=== PATIENT | female | born 1995 | race Caucasian/White ===

== ENCOUNTER 2019-03-12 15:19 | Emergency (ER) | payer OTHER ==
--- NOTE | 2019-03-12 15:48 | EDM.PDOC ---
ED HPI GENERAL MEDICAL PROBLEM - General Chief Complaint: Eye Problems Stated Complaint: EXPOSURE Time Seen by Provider: 03/12/19 15:26 - History of Present Illness INITIAL COMMENTS - FREE TEXT/NARRATIVE: HISTORY AND PHYSICAL: History of present illness: Patient is a 23-year-old female who presents for medical screening exam after having been exposed to body fluids this was in the form of urine presumptively that was splashed I when she was disposing of the trash. This was not bloody or known to be in the source is unknown. Patient denies any other concern or exposure Review of systems: As per history of present illness and below otherwise all systems reviewed and negative. Past medical history: As per history of present illness and as reviewed below otherwise noncontributory. Surgical history: As per history of present illness and as reviewed below otherwise noncontributory. Social history: No reported history of drug or alcohol abuse. Family history: As per history of present illness and as reviewed below otherwise noncontributory. Physical exam: HEENT: Atraumatic, normocephalic, pupils reactive, negative for conjunctival pallor or scleral icterus, mucous membranes moist, throat clear, neck supple, nontender, trachea midline. Diagnostics: To be determined Therapeutics: To be determined Impression: #1 body fluid exposure (urine) Definitive disposition and diagnosis as appropriate pending reevaluation and review of above. - Related Data Allergies Allergy/AdvReac Type Severity Reaction Status Date / Time No Known Allergies Allergy Verified 03/12/19 15:47 Home Meds: Home Meds . [No Known Home Meds] 03/12/19 [History] ED ROS GENERAL - Review of Systems Review Of Systems: ROS reveals no pertinent complaints other than HPI. ED EXAM GENERAL W FULL EYE - Physical Exam Exam: See Below (See dictation) Course - Vital Signs Text/Narrative:: Lengthy discussion with patient regarding risk-benefit and diagnostic treatment options all was discussed patient declines any diagnostic testing or prophylaxis and will be screened as outpatient through her employer and secure follow-up accordingly. Last Recorded V/S: Last Vital Signs Temp 36.2 C 03/12/19 15:30 Pulse 71 03/12/19 15:30 Resp 16 03/12/19 15:30 BP 112/71 03/12/19 15:30 Pulse Ox 97 03/12/19 15:30 Departure - Departure Time of Disposition: 15:51 Disposition: Home, Self-Care 01 Condition: Good Clinical Impression: Encounter for medical screening examination, Exposure to blood or body fluid - Discharge Information Referrals: PCP,None [Primary Care Provider] - Forms: ED Department Discharge Additional Instructions: The following information is given to patients seen in the emergency department who are being discharged to home. This information is to outline your options for follow-up care. We provide all patients seen in our emergency department with a follow-up referral. The need for follow-up, as well as the timing and circumstances, are variable depending upon the specifics of your emergency department visit. If you don't have a primary care physician on staff, we will provide you with a referral. We always advise you to contact your personal physician following an emergency department visit to inform them of the circumstance of the visit and for follow-up with them and/or the need for any referrals to a consulting specialist. The emergency department will also refer you to a specialist when appropriate. This referral assures that you have the opportunity for followup care with a specialist. All of these measure are taken in an effort to provide you with optimal care, which includes your followup. Under all circumstances we always encourage you to contact your private physician who remains a resource for coordinating your care. When calling for followup care, please make the office aware that this follow-up is from your recent emergency room visit. If for any reason you are refused follow-up, please contact the [facility] emergency department at and asked to speak to the emergency department charge nurse.
== END 2019-03-12 16:00 | disposition home or self-care (01) ==
LOC: MW.ED 15:19
DX: Z77.21 Contact with and (suspected) exposure to potentially hazardous body fluids (principal)
CPT/HCPCS: 99283

== ENCOUNTER 2020-11-22 11:00 | Emergency (ER) | payer BC ==
--- NOTE | 2020-11-22 11:47 | EDM.PDOC ---
ED HPI GENERAL MEDICAL PROBLEM - General Chief Complaint: Abdominal Pain Stated Complaint: BODY PAINS Time Seen by Provider: 11/22/20 11:28 Source of Information: Reports: Patient - History of Present Illness INITIAL COMMENTS - FREE TEXT/NARRATIVE: 25-year-old female [place] 20 weeks and 1 day with history of cholecystectomy and asthma presents with upper abdominal pain that started yesterday. Abdominal pain is localized to the epigastrium area, described as aching sensation, rated 4/10 and radiates into the upper back, pain waxes and wanes and is worse with movement and position. Pain improves with Tylenol. Her last ultrasound was on Saturday. Her FUR EXAMINER is at [facility] Dr. Madden. She denies fever, chills, chest pain, cough, nausea, vomiting, diarrhea, dysuria, vaginal bleeding, nausea contractions, leakage of fluids. ROS: A 10-point review of systems, other than pertinent positives and negatives as stated per HPI, is otherwise negative Past medical history: No additional pertinent history Past Surgical history: No additional pertinent history Social history: No additional pertinent history Family history: No additional pertinent history PHYSICAL EXAM General: AOx4, GCS = 15, No distress HEENT: dry mucous membrane Neck: supple, no meningismus, no Kernig or Brudzinski Cardiac: S1S2 RRR Respiratory: CTAB, no crackles or rales, no wheezing Abdomen: Soft, nontender, no rebound or guarding, nondistended, no pulsatile mass. FHT 143 Back: nontender Musculoskeletal: NVI distally, no deformity Neuro: No focal deficits, CN 2 - 12 WNL. Onset: Today abdomen, back Pain Score (Numeric/FACES): 5 - Related Data Allergies Allergy/AdvReac Type Severity Reaction Status Date / Time No Known Allergies Allergy Verified 11/22/20 11:12 Home Meds: Home Meds Mag Hydrox/Aluminum Hyd/Simeth [Almacone-2] 355 ml PO BID PRN #1 oral.susp 11/22/20 [Rx] Pnv No.95/Ferrous Fum/Folic AC [ Caplet] 1 tab PO DAILY 11/22/20 [History] Past Medical History - Past Health History Medical/Surgical History: Denies Medical/Surgical History Respiratory History: Reports: Asthma FUR EXAMINER History: Reports: - Infectious Disease History Infectious Disease History: Reports: None - Past Surgical History GI Surgical History: Reports: Cholecystectomy Social & Family History - Family History Family Medical History: No Pertinent Family History - Tobacco Use Tobacco Use Status *Q: Never Tobacco User - Caffeine Use Caffeine Use: Reports: Tea - Recreational Drug Use Recreational Drug Use: No ED ROS GENERAL - Review of Systems Review Of Systems: See Below (see dictation) ED EXAM, GI/ABD - Physical Exam Exam: See Below (see dictation) Course - Vital Signs Last Recorded V/S: Last Vital Signs Temp 98 F 11/22/20 11:08 Pulse 72 11/22/20 11:08 Resp 16 11/22/20 11:08 BP 136/70 11/22/20 11:08 Pulse Ox 100 11/22/20 11:08 - Orders/Labs/Meds Orders: Active Orders 24 hr Category Date Time Status Heart Tones [ Heart Rate] [RC] Click to Edit Care 11/22/20 11:57 Active Labs: Laboratory Tests 11/22/20 11/22/20 11/22/20 Range/Units 11:56 11:56 14:01 WBC 6.82 (4.0-11.0) K/uL RBC 3.59 L (4.30-5.90) M/uL Hgb 11.5 L (12.0-16.0) g/dL Hct 34.8 L (36.0-46.0) % MCV 96.9 (80.0-98.0) fL MCH 32.0 (27.0-32.0) pg MCHC 33.0 (31.0-37.0) g/dL RDW Std Deviation 45.4 (28.0-62.0) fl RDW Coeff of Niall 13 (11.0-15.0) % Plt Count 254 (150-400) K/uL MPV 10.40 (7.40-12.00) fL Neut % (Auto) 69.3 (48.0-80.0) % Lymph % (Auto) 23.6 (16.0-40.0) % [place] % (Auto) 5.6 (0.0-15.0) % Eos % (Auto) 1.2 (0.0-7.0) % Baso % (Auto) 0.3 (0.0-1.5) % Neut # (Auto) 4.7 (1.4-5.7) K/uL Lymph # (Auto) 1.6 (0.6-2.4) K/uL Dundy # (Auto) 0.4 (0.0-0.8) K/uL Eos # (Auto) 0.1 (0.0-0.7) K/uL Baso # (Auto) 0.0 (0.0-0.1) K/uL Nucleated RBC % 0.0 /100WBC Nucleated RBCs # 0 K/uL Sodium 140 (136-145) mmol/L Potassium 4.1 (3.5-5.1) mmol/L Chloride 106 (98-107) mmol/L Carbon Dioxide 24.5 (21.0-32.0) mmol/L BUN 5 L (7.0-18.0) mg/dL Creatinine 0.7 (0.6-1.0) mg/dL Est Cr Clr Drug Dosing 121.55 mL/min Estimated GFR (MDRD) > 60.0 ml/min Glucose 92 (74-106) mg/dL Calcium 8.9 (8.5-10.1) mg/dL Total Bilirubin 0.2 (0.2-1.0) mg/dL AST 11 L (15-37) IU/L ALT 10 L (14-63) IU/L Alkaline Phosphatase 45 L (46-116) U/L Total Protein 6.9 (6.4-8.2) g/dL Albumin 3.1 L (3.4-5.0) g/dL Globulin 3.8 (2.6-4.0) g/dL Albumin/Globulin Ratio 0.8 L (0.9-1.6) Lipase 71 L (73-393) U/L Urine Color YELLOW Urine Appearance CLEAR Urine pH 7.5 (5.0-8.0) Ur Specific [place] 1.015 (1.001-1.035) Urine Protein NEGATIVE (NEGATIVE) mg/dL Urine Glucose (UA) NEGATIVE (NEGATIVE) mg/dL Urine Ketones NEGATIVE (NEGATIVE) mg/dL Urine Occult Blood NEGATIVE (NEGATIVE) Urine Nitrite NEGATIVE (NEGATIVE) Urine Bilirubin NEGATIVE (NEGATIVE) Urine Urobilinogen 0.2 (<2.0) EU/dL Ur Leukocyte Esterase NEGATIVE (NEGATIVE) Urine RBC 0-1 (0-2/HPF) Urine WBC 0-1 (0-5/HPF) Ur Epithelial Cells RARE (NONE-FEW) Urine Bacteria RARE (NEGATIVE) Meds: Medications Discontinued Medications Generic Name Dose Route Start Last Admin Trade Name Mariaelena PRN Reason Stop Dose Admin Al Hydroxide/Mg Hydroxide 30 ml 11/22/20 11:54 11/22/20 12:29 Mag-Al Plus PO 11/22/20 11:55 30 ml ONETIME ONE Administration - Re-Assessments/Exams Free Text/Narrative Re-Assessment/Exam: 11/22/20 11:54 After aluminum hydroxide/magnesium hydroxide/simethicone in the ER, she improved and is currently stable for discharge. I performed a repeat exam and did not appreciate new abnormal findings. Patient exhibits normal vital signs and has a normal gait on road test. I advised the patient to return to the ER for reevaluation if symptoms worsened, including fever, worsening pain, or any other worrisome symptoms. I instructed the patient to follow up with her OBGYN within 1 week. MEDICAL DECISION MAKING: I reviewed the patients past medical records, lab and radiographic findings. I discussed the case with the patient. My differential diagnosis included: GERD, round ligament syndrome, UTI, pancreatitis. Patient demonstrated no tachycardia or fever or leukocytosis, I do not suspect for significant infectious etiology. Her urine did not demonstrate UTI. She has no gallbladder, she has no transaminitis, and her lipase was unremarkable, I do not suspect pancreatitis or choledocholithiasis. Her symptoms improved after getting an aluminum hydroxide and magnesium hydroxide and simethicone, I suspect her symptoms are secondary to GERD. Her heart tones = 143, I suspect she is stable for outpatient follow-up with FUR EXAMINER. Departure - Departure Time of Disposition: 14:47 Disposition: Home, Self-Care 01 Condition: Good Clinical Impression: GERD (gastroesophageal reflux disease) - Discharge Information *PRESCRIPTION DRUG MONITORING PROGRAM REVIEWED*: Not Applicable *COPY OF PRESCRIPTION DRUG MONITORING REPORT IN PATIENT MARIE: Not Applicable Prescriptions: Mag Hydrox/Aluminum Hyd/Simeth [Almacone-2] 355 ml PO BID PRN #1 oral.susp PRN Reason: Abdominal Pain Instructions: Food Choices for Gastroesophageal Reflux Disease, Adult, Gastroesophageal Reflux Disease, Adult, [id number] Referrals: Johan Diaz MD [Primary Care Provider] - 1 Week Forms: ED Department Discharge Additional Instructions: The need for follow-up, as well as the timing and circumstances, are variable depending upon the specifics of your emergency department visit. If you don't have a primary care physician on staff, we will provide you with a referral. We always advise you to contact your personal physician following an emergency department visit to inform them of the circumstance of the visit and for follow-up with them and/or the need for any referrals to a consulting specialist. The emergency department will also refer you to a specialist when appropriate. This referral assures that you have the opportunity for follow-up care with a specialist. All of these measure are taken in an effort to provide you with optimal care, which includes your follow-up. Under all circumstances we always encourage you to contact your private physician who remains a resource for coordinating your care. When calling for follow-up care, please make the office aware that this follow-up is from your recent emergency room visit. If for any reason you are refused follow-up, please contact the [facility] Emergency Department at and asked to speak to the emergency department charge nurse. If you do not have a primary care doctor, please follow up with the clinics below within 3-5 days. FUR EXAMINER clinics [facility] [address] [place] [id number] Sepsis Event Note (ED) - Evaluation Sepsis Screening Result: No Definite Risk - Focused Exam Vital Signs: Vital Signs Temp Pulse Resp BP Pulse Ox 11/22/20 11:08 98 F 72 16 136/70 100 - My Orders Last 24 Hours: My Active Orders 11/22/20 11:57 Heart Tones [ Heart Rate] [RC] Click to Edit - Assessment/Plan Last 24 Hours: My Active Orders 11/22/20 11:57 Heart Tones [ Heart Rate] [RC] Click to Edit
[2020-11-22] MEDS ORDERED: Aluminum Hydroxide/Magnesium Hydroxide/Simethicone Susp 30 ML Cup PO ONE (11:54)
[2020-11-22 12:50] LABS: BLOOD UREA NITROGEN,BUN 5 mg/dL (7.0-18.0); CARBON DIOXIDE,CO2 24.5 mmol/L (21.0-32.0); CHLORIDE,CL 106 mmol/L (98-107); GLUCOSE RANDOM 92 mg/dL (74-106); LIPASE 71 U/L (73-393); POTASSIUM,K 4.1 mmol/L (3.5-5.1); SODIUM,NA 140 mmol/L (136-145)
== END 2020-11-22 15:05 | disposition home or self-care (01) ==
LOC: MW.ED 11:00
DX: K21.9 Gastro-esophageal reflux disease without esophagitis (principal); J45.909 Unspecified asthma, uncomplicated
CPT/HCPCS: 36415; 80053; 81001; 83690; 85025; 99284; A9270; 99283

== ENCOUNTER 2021-04-04 06:39 | Inpatient (IN) | payer BC ==
[2021-04-04] MEDS ORDERED: Terbutaline 1 MG/ML SDV SUBCUT PRN (11:42)
[2021-04-04] MEDS ORDERED: Oxytocin/0.9 % Sodium Chloride 30 UNIT/500 ML BAG IV SCH ×2 (11:45→12:00)
[2021-04-04] MEDS ORDERED: Misoprostol 200 MCG Tab PO PRN (11:49)
[2021-04-04] MEDS ORDERED: Water For Irrigation,Sterile 1,000 ML Container IRR PRN (11:49)
[2021-04-04] MEDS ORDERED: Lidocaine 1% 50 ML MDV INJECT PRN (11:49)
[2021-04-04] MEDS ORDERED: Carboprost Tromethamine 250 MCG/1 ML Amp IM PRN (11:49)
[2021-04-04] MEDS ORDERED: Nalbuphine 10 MG/1 ML Vial IVPUSH PRN (11:49)
[2021-04-04] MEDS ORDERED: Sodium Chloride 0.9% 10 ML Syringe FLUSH PRN (11:49)
[2021-04-04] MEDS ORDERED: Sodium Chloride 0.9% 2.5 ML Syringe FLUSH PRN (11:49)
[2021-04-04] MEDS ORDERED: Sodium Chloride 0.9% 10 ML SDV IV PRN (11:49)
[2021-04-04] MEDS ORDERED: Tranexamic Acid 1,000 MG in Sodium Chloride 0.9% 100 ML IV PRN (11:49)
[2021-04-04] MEDS ORDERED: Butorphanol 1 MG/ML SDV IVPUSH PRN (11:49)
[2021-04-04] MEDS ORDERED: Methylergonovine 0.2 MG/1 ML Amp IM PRN (11:49)
[2021-04-04] MEDS: Lactated Ringers 1,000 ML IV SCH (12:29)
[2021-04-04] MEDS: Misoprostol 25 MCG (1/4 of 100 MCG) Tab VAG PRN ×2 (13:06→17:06)
[2021-04-04 13:14] LABS: BLOOD UREA NITROGEN,BUN 12 mg/dL (7.0-18.0); CARBON DIOXIDE,CO2 21.2 mmol/L (21.0-32.0); CHLORIDE,CL 102 mmol/L (98-107); GLUCOSE RANDOM 106 mg/dL (74-106); POTASSIUM,K 3.3 mmol/L (3.5-5.1); SODIUM,NA 138 mmol/L (136-145)
[2021-04-04] MEDS ORDERED: Ampicillin 2 GM in Sodium Chloride 0.9% 100 ML IV ONE (14:00)
[2021-04-04] MEDS: Ampicillin 1 GM in Sodium Chloride 0.9% 50 ML IV SCH ×2 (17:06→21:16)
[2021-04-04] MEDS ORDERED: Acetaminophen 500 MG Tab PO ONE (20:03)
[2021-04-05] MEDS: Lactated Ringers 1,000 ML IV SCH ×2 (00:33→05:11)
[2021-04-05] MEDS ORDERED: Ropivacaine HCl/PF 200 ML ONE (00:49)
[2021-04-05] MEDS ORDERED: Bupivacaine 0.25% 10 ML SDV ONE (00:49)
[2021-04-05] MEDS: Ampicillin 1 GM in Sodium Chloride 0.9% 50 ML IV SCH ×2 (01:10→05:11)
--- NOTE | 2021-04-05 01:22 | PCM.PREANE ---
Preanesthetic Assessment - Anesthesia/Transfusion/Family Hx Anesthesia History: Prior Anesthesia Without Reaction Family History of Anesthesia Reaction: No Transfusion History: No Prior Transfusion(s) - Physical Assessment NPO Status Date: 04/04/21 NPO Status Time: 21:00 Vital Signs: Last Vital Signs Temp 101.1 F H 04/04/21 20:25 Pulse Resp BP Pulse Ox Height: 5 ft 7 in Weight: 166 lb ASA Class: 2 Airway Class: Mallampati = 2 - Lab Values: Laboratory Last Values WBC 9.17 K/uL (4.0-11.0) 04/04/21 12:20 RBC 3.48 M/uL (4.30-5.90) L 04/04/21 12:20 Hgb 11.5 g/dL (12.0-16.0) L 04/04/21 12:20 Hct 33.9 % (36.0-46.0) L 04/04/21 12:20 MCV 97.4 fL (80.0-98.0) 04/04/21 12:20 MCH 33.0 pg (27.0-32.0) H 04/04/21 12:20 MCHC 33.9 g/dL (31.0-37.0) 04/04/21 12:20 RDW Std Deviation 43.3 fl (28.0-62.0) 04/04/21 12:20 RDW Coeff of Niall 12 % (11.0-15.0) 04/04/21 12:20 Plt Count 162 K/uL (150-400) 04/04/21 12:20 MPV 12.40 fL (7.40-12.00) H 04/04/21 12:20 Nucleated RBC % 0.0 /100WBC 04/04/21 12:20 Nucleated RBCs # 0 K/uL 04/04/21 12:20 Sodium 138 mmol/L (136-145) 04/04/21 12:20 Potassium 3.3 mmol/L (3.5-5.1) L 04/04/21 12:20 Chloride 102 mmol/L (98-107) 04/04/21 12:20 Carbon Dioxide 21.2 mmol/L (21.0-32.0) 04/04/21 12:20 BUN 12 mg/dL (7.0-18.0) 04/04/21 12:20 Creatinine 0.9 mg/dL (0.6-1.0) 04/04/21 12:20 Est Cr Clr Drug Dosing TNP 04/04/21 12:20 Estimated GFR (MDRD) > 60.0 ml/min 04/04/21 12:20 Glucose 106 mg/dL (74-106) 04/04/21 12:20 Uric Acid 6.8 mg/dL (2.6-7.2) 04/04/21 12:20 Calcium 8.5 mg/dL (8.5-10.1) 04/04/21 12:20 Total Bilirubin 0.2 mg/dL (0.2-1.0) 04/04/21 12:20 AST 17 IU/L (15-37) 04/04/21 12:20 ALT 12 IU/L (14-63) L 04/04/21 12:20 Alkaline Phosphatase 133 U/L (46-116) H 04/04/21 12:20 Total Protein 6.9 g/dL (6.4-8.2) 04/04/21 12:20 Albumin 2.7 g/dL (3.4-5.0) L 04/04/21 12:20 Globulin 4.2 g/dL (2.6-4.0) H 04/04/21 12:20 Albumin/Globulin Ratio 0.6 (0.9-1.6) L 04/04/21 12:20 Ur Random Creatinine 52.7 mg/dL 04/04/21 13:00 U Random Total Protein < 6.0 mg/dL (<11.9) 04/04/21 13:00 Protein/Creatinin Ratio TNP 04/04/21 13:00 SARS-CoV-2 RNA (ADA) NEGATIVE (NEGATIVE) 04/04/21 12:00 Blood Type O POSITIVE 04/04/21 12:20 Antibody Screen NEGATIVE 04/04/21 12:20 - Allergies Allergies/Adverse Reactions: Allergies Allergy/AdvReac Type Severity Reaction Status Date / Time No Known Allergies Allergy Verified 11/22/20 11:12 - Blood Blood Available: Yes Product(s) Available: PRBC - Anesthesia Plan Pre-Op Medication Ordered: None - Acknowledgements Anesthesia Type Planned: Epidural Pt an Appropriate Candidate for the Planned Anesthesia: Yes Alternatives and Risks of Anesthesia Discussed w Pt/Guardian: Yes Pt/Guardian Understands and Agrees with Anesthesia Plan: Yes PreAnesthesia Questionnaire - Past Health History Medical/Surgical History: Denies Medical/Surgical History Respiratory History: Reports: Asthma [employer]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: , Spontaneous - Infectious Disease History Infectious Disease History: Reports: None - Past Surgical History Head Surgeries/Procedures: Reports: None Respiratory Surgical History: Reports: None GI Surgical History: Reports: Cholecystectomy - SUBSTANCE USE Tobacco Use Status *Q: Never Tobacco User Tobacco Use Within Last Twelve Months: No Second Hand Smoke Exposure: No Recreational Drug Use History: No - HOME MEDS Home Medications: Home Meds Pnv No.95/Ferrous Fum/Folic AC [ Caplet] 1 tab PO DAILY 11/22/20 [History] Acetaminophen [Tylenol Extra Strength] 500 mg PO Q8HR PRN 04/04/21 [History] diphenhydrAMINE HCL [Unisom] 50 mg PO BEDTIME PRN 04/04/21 [History] polyethylene glycoL 3350 [MiraLAX] 17 gm PO BEDTIME PRN 04/04/21 [History] - CURRENT (IN HOUSE) MEDS Current Meds: Current Medications Butorphanol Tartrate (Butorphanol 1 Mg/Ml Sdv) 1 mg IVPUSH Q1H PRN PRN Reason: Pain (severe 7-10) Carboprost Tromethamine (Carboprost Tromethamine 250 Mcg/1 Ml Amp) 250 mcg IM ASDIRECTED PRN PRN Reason: Post Hemorrhage Oxytocin/Sodium Chloride (Oxytocin 30 Unit/500 Ml-Ns) 30 unit in 500 mls @ 2 mls/hr IV TITRATE CALVIN; Protocol Ampicillin Sodium 1 gm/ Sodium (Chloride) 50 mls @ 100 mls/hr IV Q4H [facility] Last Admin: 04/05/21 01:10 Dose: 100 mls/hr Documented by: Lactated Ringer's (Ringers, Lactated) 1,000 mls @ 150 mls/hr IV ASDIRECTED [facility] Last Admin: 04/05/21 00:33 Dose: 999 mls/hr Documented by: Oxytocin/Sodium Chloride (Oxytocin 30 Unit/500 Ml-Ns) 30 unit in 500 mls @ 999 mls/hr IV TITRATE CALVIN Tranexamic Acid 1,000 mg/ (Sodium Chloride) 110 mls @ 660 mls/hr IV ONETIME PRN PRN Reason: Bleeding Lidocaine HCl (Lidocaine 1% 50 Ml Mdv) 50 ml INJECT ONETIME PRN PRN Reason: Laceration repair Methylergonovine Maleate (Methylergonovine 0.2 Mg/1 Ml Amp) 0.2 mg IM ASDIRECTED PRN PRN Reason: Post Hemorrhage Misoprostol (Misoprostol 25 Mcg (1/4 Of 100 Mcg) Tab) 25 mcg VAG Q4H PRN PRN Reason: Cervical Ripening Last Admin: 04/04/21 17:06 Dose: 25 mcg Documented by: Misoprostol (Misoprostol 200 Mcg Tab) 200 mcg PO ONETIME PRN PRN Reason: Post Hemorrhage Nalbuphine HCl (Nalbuphine 10 Mg/1 Ml Vial) 10 mg IVPUSH Q1H PRN PRN Reason: Pain (severe 7-10) Sodium Chloride (Sodium Chloride 0.9% 10 Ml Syringe) 10 ml FLUSH ASDIRECTED PRN PRN Reason: Keep Vein Open Sodium Chloride (Sodium Chloride 0.9% 2.5 Ml Syringe) 2.5 ml FLUSH ASDIRECTED PRN PRN Reason: Keep Vein Open Sodium Chloride (Sodium Chloride 0.9% 10 Ml Sdv) 10 ml IV ASDIRECTED PRN PRN Reason: IV Use Sterile Water (Water For Irrigation,Sterile 1,000 Ml Container) 1,000 ml IRR ASDIRECTED PRN PRN Reason: delivery Terbutaline Sulfate (Terbutaline 1 Mg/Ml Sdv) 0.25 mg SUBCUT ASDIRECTED PRN PRN Reason: Tacysystole Discontinued Medications Acetaminophen (Acetaminophen 500 Mg Tab) 1,000 mg PO NOW ONE Stop: 04/04/21 20:04 Last Admin: 04/04/21 20:25 Dose: 1,000 mg Documented by: Bupivacaine HCl (Bupivacaine 0.25% 10 Ml Sdv) Confirm Administered Dose 10 ml .ROUTE .STK-MED ONE Stop: 04/05/21 00:50 Ampicillin Sodium 2 gm/ Sodium (Chloride) 100 mls @ 200 mls/hr IV ONETIME ONE Stop: 04/04/21 14:29 Last Admin: 04/04/21 13:06 Dose: 200 mls/hr Documented by: Ropivacaine (Naropin 0.2%) Confirm Administered Dose 200 mls @ as directed .ROUTE .STK-MED ONE Stop: 04/05/21 00:50 - Pre-Procedure Checklist Attending Provider Aware: Yes Chart Reviewed: Yes Consent Signed: Yes Labs Reviewed: Yes VS/FHR Reviewed: Yes Patient Identification Confirmation Method: Reports: Verbal Patient Pt an Appropriate Candidate for the Planned Anesthesia: Yes Alternatives and Risks of Anesthesia Discussed w Pt/Guardian: Yes - Procedure Procedure Start Date: 04/05/21 Procedure Start Time: 00:[address]: Reports: Blood Pressure, Heart Rate, SPO2 Functional IV: Yes Safety Measures: Reports: Patient Identified, Procedure Verified, Site Verified, Procedure Time Out Patient Position: Reports: Sitting Prep: Reports: Betadine x3 Local Anesthetic: Reports: Intradermal Wheal w Lidocaine 1% Regional Placement Level: Reports: L3-4 Needle: Reports: 17 g Touhy Approach: Reports: Midline Technique: Reports: MIRTHA Plastic Syringe Parasthesia: Reports: None Fluid Obtained: Reports: None Test Dose Time: 01:02 Test Dose Medication: Reports: Lidocaine 1.5% w Epinephrine 1:200,000 Test Dose Response: Reports: Negative Loading Dose Time: 01:02 Loading Dose Medication: bupivicaine 0.25% Loading Dose Patient Position: sitting Continuous Infusion Start Time: 01:05 Continuous Infusion Medication: ropivicaine 0.2% Continuous Infusion Rate: 16 Continuous Infusion PCS Bolus Option: 4 Continuous Infusion Lockout Dose (cc/hr): 32 Patient Position Post Placement: Reports: Supline/MATEO VS and FHR Monitored in Unit Post Placement: Yes Procedure End Date: 04/05/21 Procedure End Time: 01:59
[2021-04-05] MEDS ORDERED: oxyCODONE 5 MG Tab PO PRN (06:57)
[2021-04-05] MEDS ORDERED: Lanolin 100% Cream 7 GM Tube TOP PRN (06:57)
[2021-04-05] MEDS ORDERED: Bisacodyl 10 MG Supp RECTAL PRN (06:57)
[2021-04-05] MEDS ORDERED: Benzocaine/Menthol 20%-0.5% Spray 78 GM Cannister TOP PRN (06:57)
[2021-04-05] MEDS ORDERED: Witch Hazel Medicated Pads 40/Jar TOP PRN (06:57)
[2021-04-05] MEDS ORDERED: Docusate Sodium 100 MG Cap PO PRN (06:57)
--- NOTE | 2021-04-05 07:02 | PCM.DEL ---
L & D Note - General Info Date of Service: 04/05/21 Mother's Due Date: 04/11/21 - Delivery Note Labor: Spontaneous Cervical Ripening Method: Misoprostil (x2 doses) Delivery Outcome: Livebirth Infant Delivery Method: Spontaneous Vaginal Delivery-Single Presentation: Compound (left hand) Nuchal Cord: Present (x1), Reduced (after delivery of body) Anesthesia Type: Epidural Amniotic Fluid Description: Meconium Stained Episiotomy Type: None Laceration: Labial (left) Suture type: Vicryl Suture size: 2-0 Placenta: Intact, Spontaneous, Meconium Stained Cord: 3 Vessels Estimated Blood Loss: 100 Resuscitation Needed: No [place]: Stimulated, Warmed Score 1 min: 8 Score 5 min: 9 Delivery Comments (Free Text/Narrative):: Received 4 doses of IV Ampicillin for GBS prophylaxis - General Info Date of Service: 04/05/21 - Patient Data Vitals - Most Recent: Last Vital Signs Temp 38.4 C H 04/04/21 20:25 Pulse Resp BP Pulse Ox Weight - Most Recent: 75.296 kg Lab Results Last 24 Hours: Laboratory Results - last 24 hr 04/04/21 04/04/21 04/04/21 Range/Units 12:00 12:20 12:20 WBC 9.17 (4.0-11.0) K/uL RBC 3.48 L (4.30-5.90) M/uL Hgb 11.5 L (12.0-16.0) g/dL Hct 33.9 L (36.0-46.0) % MCV 97.4 (80.0-98.0) fL MCH 33.0 H (27.0-32.0) pg MCHC 33.9 (31.0-37.0) g/dL RDW Std Deviation 43.3 (28.0-62.0) fl RDW Coeff of Niall 12 (11.0-15.0) % Plt Count 162 (150-400) K/uL MPV 12.40 H (7.40-12.00) fL Nucleated RBC % 0.0 /100WBC Nucleated RBCs # 0 K/uL Sodium (136-145) mmol/L Potassium (3.5-5.1) mmol/L Chloride (98-107) mmol/L Carbon Dioxide (21.0-32.0) mmol/L BUN (7.0-18.0) mg/dL Creatinine (0.6-1.0) mg/dL Est Cr Clr Drug Dosing Estimated GFR (MDRD) ml/min Glucose (74-106) mg/dL Uric Acid (2.6-7.2) mg/dL Calcium (8.5-10.1) mg/dL Total Bilirubin (0.2-1.0) mg/dL AST (15-37) IU/L ALT (14-63) IU/L Alkaline Phosphatase (46-116) U/L Total Protein (6.4-8.2) g/dL Albumin (3.4-5.0) g/dL Globulin (2.6-4.0) g/dL Albumin/Globulin Ratio (0.9-1.6) Ur Random Creatinine mg/dL U Random Total Protein (<11.9) mg/dL Protein/Creatinin Ratio SARS-CoV-2 RNA (ADA) NEGATIVE (NEGATIVE) Blood Type O POSITIVE Antibody Screen NEGATIVE 04/04/21 04/04/21 Range/Units 12:20 13:00 WBC (4.0-11.0) K/uL RBC (4.30-5.90) M/uL Hgb (12.0-16.0) g/dL Hct (36.0-46.0) % MCV (80.0-98.0) fL MCH (27.0-32.0) pg MCHC (31.0-37.0) g/dL RDW Std Deviation (28.0-62.0) fl RDW Coeff of Niall (11.0-15.0) % Plt Count (150-400) K/uL MPV (7.40-12.00) fL Nucleated RBC % /100WBC Nucleated RBCs # K/uL Sodium 138 (136-145) mmol/L Potassium 3.3 L (3.5-5.1) mmol/L Chloride 102 (98-107) mmol/L Carbon Dioxide 21.2 (21.0-32.0) mmol/L BUN 12 (7.0-18.0) mg/dL Creatinine 0.9 (0.6-1.0) mg/dL Est Cr Clr Drug Dosing TNP Estimated GFR (MDRD) > 60.0 ml/min Glucose 106 (74-106) mg/dL Uric Acid 6.8 (2.6-7.2) mg/dL Calcium 8.5 (8.5-10.1) mg/dL Total Bilirubin 0.2 (0.2-1.0) mg/dL AST 17 (15-37) IU/L ALT 12 L (14-63) IU/L Alkaline Phosphatase 133 H (46-116) U/L Total Protein 6.9 (6.4-8.2) g/dL Albumin 2.7 L (3.4-5.0) g/dL Globulin 4.2 H (2.6-4.0) g/dL Albumin/Globulin Ratio 0.6 L (0.9-1.6) Ur Random Creatinine 52.7 mg/dL U Random Total Protein < 6.0 (<11.9) mg/dL Protein/Creatinin Ratio TNP SARS-CoV-2 RNA (ADA) (NEGATIVE) Blood Type Antibody Screen Med Orders - Current: Current Medications Butorphanol Tartrate (Butorphanol 1 Mg/Ml Sdv) 1 mg IVPUSH Q1H PRN PRN Reason: Pain (severe 7-10) Carboprost Tromethamine (Carboprost Tromethamine 250 Mcg/1 Ml Amp) 250 mcg IM ASDIRECTED PRN PRN Reason: Post Hemorrhage Oxytocin/Sodium Chloride (Oxytocin 30 Unit/500 Ml-Ns) 30 unit in 500 mls @ 2 mls/hr IV TITRATE CALVIN; Protocol Ampicillin Sodium 1 gm/ Sodium (Chloride) 50 mls @ 100 mls/hr IV Q4H CALVIN Last Admin: 04/05/21 01:10 Dose: 100 mls/hr Documented by: Lactated Ringer's (Ringers, Lactated) 1,000 mls @ 150 mls/hr IV ASDIRECTED CALVIN Last Infusion: 04/05/21 01:19 Dose: 150 mls/hr Documented by: Oxytocin/Sodium Chloride (Oxytocin 30 Unit/500 Ml-Ns) 30 unit in 500 mls @ 999 mls/hr IV TITRATE CALVIN Tranexamic Acid 1,000 mg/ (Sodium Chloride) 110 mls @ 660 mls/hr IV ONETIME PRN PRN Reason: Bleeding Lidocaine HCl (Lidocaine 1% 50 Ml Mdv) 50 ml INJECT ONETIME PRN PRN Reason: Laceration repair Methylergonovine Maleate (Methylergonovine 0.2 Mg/1 Ml Amp) 0.2 mg IM ASDIRECTED PRN PRN Reason: Post Hemorrhage Misoprostol (Misoprostol 25 Mcg (1/4 Of 100 Mcg) Tab) 25 mcg VAG Q4H PRN PRN Reason: Cervical Ripening Last Admin: 04/04/21 17:06 Dose: 25 mcg Documented by: Misoprostol (Misoprostol 200 Mcg Tab) 200 mcg PO ONETIME PRN PRN Reason: Post Hemorrhage Nalbuphine HCl (Nalbuphine 10 Mg/1 Ml Vial) 10 mg IVPUSH Q1H PRN PRN Reason: Pain (severe 7-10) Sodium Chloride (Sodium Chloride 0.9% 10 Ml Syringe) 10 ml FLUSH ASDIRECTED PRN PRN Reason: Keep Vein Open Sodium Chloride (Sodium Chloride 0.9% 2.5 Ml Syringe) 2.5 ml FLUSH ASDIRECTED PRN PRN Reason: Keep Vein Open Sodium Chloride (Sodium Chloride 0.9% 10 Ml Sdv) 10 ml IV ASDIRECTED PRN PRN Reason: IV Use Sterile Water (Water For Irrigation,Sterile 1,000 Ml Container) 1,000 ml IRR ASDIRECTED PRN PRN Reason: delivery Terbutaline Sulfate (Terbutaline 1 Mg/Ml Sdv) 0.25 mg SUBCUT ASDIRECTED PRN PRN Reason: Tacysystole Discontinued Medications Acetaminophen (Acetaminophen 500 Mg Tab) 1,000 mg PO NOW ONE Stop: 04/04/21 20:04 Last Admin: 04/04/21 20:25 Dose: 1,000 mg Documented by: Bupivacaine HCl (Bupivacaine 0.25% 10 Ml Sdv) Confirm Administered Dose 10 ml .ROUTE .STK-MED ONE Stop: 04/05/21 00:50 Ampicillin Sodium 2 gm/ Sodium (Chloride) 100 mls @ 200 mls/hr IV ONETIME ONE Stop: 04/04/21 14:29 Last Admin: 04/04/21 13:06 Dose: 200 mls/hr Documented by: Ropivacaine (Naropin 0.2%) Confirm Administered Dose 200 mls @ as directed .ROUTE .STK-MED ONE Stop: 04/05/21 00:50 - Problem List & Annotations (1) Vaginal delivery SNOMED Code(s): 148972668 Code(s): O80 - ENCOUNTER FOR FULL-TERM UNCOMPLICATED DELIVERY Status: Acute Current Visit: Yes (2) Gestational hypertension SNOMED Code(s): 674843394 Code(s): O13.9 - GESTATIONAL HTN W/O SIGNIFICANT PROTEINURIA, UNSP TRIMESTER Status: Acute Current Visit: Yes - Problem List Review Problem List Initiated/Reviewed/Updated: Yes - My Orders Last 24 Hours: My Active Orders 04/05/21 Breakfast Regular Diet [DIET] 04/05/21 06:57 Patient Status [ADT] Routine May Shower [RC] ASDIRECTED Notify Provider Vital Signs [RC] ASDIRECTED Up ad [place] [RC] ASDIRECTED Vital Signs [RC] PER UNIT ROUTINE Acetaminophen [Tylenol Extra Strength] 1,000 mg PO Q6H PRN Benzocaine/Menthol [Dermoplast Pain Relief 20%-0.5% [place]] 78 gm TOP ASDIRECTED PRN Docusate Sodium [Colace] 100 mg PO Q12H PRN Ibuprofen [Motrin] 800 mg PO Q8H PRN Lanolin [Lansinoh HPA] See Dose Instructions TOP ASDIRECTED PRN bisacodyL [Dulcolax] 10 mg RECTAL ONETIME PRN oxyCODONE 5 mg PO Q2H PRN [place] [Tucks] 1 pad TOP ASDIRECTED PRN Assess Lochia [WOMSER] Per Unit Routine Assess Uterine Involution [WOMSER] Per Unit Routine Breast Pump [WOMSER] Per Unit Routine Peripheral IV Discontinue [OM.PC] Routine 04/05/21 06:58 Cooling Warming Measures [RC] ASDIRECTED Ice Therapy [OM.PC] Per Unit Routine Perineal Care [OM.PC] Per Unit Routine Sitz Bath [OM.PC] Per Unit Routine 04/06/21 05:11 HEMOGLOBIN/HEMATOCRIT,HH [HEME] Timed - Assessment Assessment:: 25yo s/p at 39w1d - Plan Plan:: Admit to unit for routine care. Rh positive, Rubella immune, GBS positive - received adequate prophylaxis. Gestational hypertension - monitor BP .
[2021-04-05] MEDS: Acetaminophen 500 MG Tab PO PRN ×2 (07:27→17:48)
--- NOTE | 2021-04-05 08:26 | PCM48HPAN ---
Post Anesthesia Note - EVALUATION WITHIN 48HRS OF ANESTHETIC Vital Signs in Normal Range: Yes Patient Participated in Evaluation: Yes Respiratory Function Stable: Yes Airway Patent: Yes Cardiovascular Function Stable: Yes Hydration Status Stable: Yes Pain Control Satisfactory: Yes Nausea and Vomiting Control Satisfactory: Yes Mental Status Recovered: Yes Vital Signs: Last Vital Signs Temp 101.1 F H 04/04/21 20:25 Pulse Resp BP Pulse Ox
--- NOTE | 2021-04-05 08:26 | PCM.POSTAN ---
POST ANESTHESIA ASSESSMENT - MENTAL STATUS Mental Status: Alert, Oriented - VITAL SIGNS Vital Signs: Last Vital Signs Temp 101.1 F H 04/04/21 20:25 Pulse Resp BP Pulse Ox - RESPIRATORY Respiratory Status: Respiratory Rate WNL, Airway Patent, O2 Saturation Stable - CARDIOVASCULAR CV Status: Pulse Rate WNL, Blood Pressure Stable - GASTROINTESTINAL GI Status: No Symptoms - POST OP HYDRATION Hydration Status: Adequate & Stable
--- NOTE | 2021-04-05 08:42 | OR ---
SURGEON: Jamia Burnett MD DATE OF PROCEDURE: 04/05/2021 PREOPERATIVE DIAGNOSES: 1. 25-year-old G2, P0-0-1-0 at 39 weeks and 0 days gestation. 2. Gestational hypertension. 3. Group B Streptococcus positive. POSTOPERATIVE DIAGNOSES: 1. 25-year-old G2, P1-0-1-1 at 39 weeks and 1 day gestation. 2. Gestational hypertension. 3. Group B Streptococcus positive. Received for prophylaxis. 4. Meconium-stained fluid and placenta. PROCEDURE: Spontaneous vaginal delivery and repair of left labial laceration. PRIMARY SURGEON: Jamia Burnett MD. ANESTHESIA: Epidural. ESTIMATED BLOOD LOSS: 100 mL. FINDINGS: Live male infant in cephalic presentation. score 8 and 9 at one and five minutes respectively. Weight pending. Nuchal cord x1, reduced after delivery of body. Left compound hand. Placenta intact with 3-vessel cord, however, appears small and with meconium staining. Left labial laceration. INDICATIONS: This is a 25-year-old G2, P0-0-1-0 who presented at 39 weeks and 0 days gestation for induction of labor due to gestational hypertension. On presentation, her cervix was found to be 1 cm dilated. She received 2 doses of Cytotec for cervical ripening. She began willy spontaneously. She received an epidural for pain control. She progressed to 6 cm dilated and had spontaneous rupture of membranes with meconium fluid noted. She progressed to complete cervical dilation shortly thereafter. DESCRIPTION OF PROCEDURE: I arrived to the room with the cervix completely dilated and the 's head at +4 station. Over the next several contractions, the patient pushed and delivered a live male infant. Head was delivered followed by the shoulders and remainder of the body. The left compound hand was noted and a nuchal cord x1 was reduced after delivery of the body. was placed on maternal abdomen. After approximately 6 seconds, the cord was clamped and cut. Cord blood was obtained. Placenta was then delivered intact and with 3-vessel cord via the Garza-Crawford maneuver. It will be sent to pathology due to gestational hypertension. The perineum was inspected and a left labial laceration was noted. This was repaired to anatomy and hemostasis with 2-0 Vicryl suture. The fundus was firm below the umbilicus with minimal bleeding. The patient and tolerated the delivery well. [id number] / MODL /[id number]
[2021-04-05] MEDS: Ibuprofen 800 MG Tab PO PRN ×2 (10:28→23:41)
[2021-04-06] MEDS: Ibuprofen 800 MG Tab PO PRN (08:19)
--- NOTE | 2021-04-06 09:00 | PCM.PNPP ---
- General Info Date of Service: 04/06/21 Functional Status: Reports: Pain Controlled, Tolerating Diet, Ambulating, Urinating - Review of Systems General: Reports: No Symptoms HEENT: Reports: No Symptoms Pulmonary: Reports: No Symptoms Cardiovascular: Reports: No Symptoms Gastrointestinal: Reports: No Symptoms Genitourinary: Reports: No Symptoms Musculoskeletal: Reports: No Symptoms Skin: Reports: No Symptoms Neurological: Reports: No Symptoms Psychiatric: Reports: No Symptoms - Patient Data Vital Signs - Most Recent: Last Vital Signs Temp 36.3 C 04/06/21 08:00 Pulse 62 04/06/21 08:00 Resp 16 04/06/21 08:00 BP 140/85 04/06/21 08:00 Pulse Ox 97 04/06/21 08:00 Weight - Most Recent: 166 lb Lab Results - Last 24 Hours: Laboratory Results - last 24 hr 04/06/21 Range/Units 04:58 Hgb 11.1 L (12.0-16.0) g/dL Hct 33.0 L (36.0-46.0) % Med Orders - Current: Current Medications Acetaminophen (Acetaminophen 500 Mg Tab) 1,000 mg PO Q6H PRN PRN Reason: Pain (mild 1-3) Last Admin: 04/05/21 17:48 Dose: 1,000 mg Documented by: Benzocaine/Menthol (Benzocaine/Menthol 20%-0.5% [place] 78 Gm Cannister) 78 gm TOP ASDIRECTED PRN PRN Reason: Perineal Comfort Measure Last Admin: 04/05/21 10:26 Dose: 1 can Documented by: Bisacodyl (Bisacodyl 10 Mg Supp) 10 mg RECTAL ONETIME PRN PRN Reason: Constipation Butorphanol Tartrate (Butorphanol 1 Mg/Ml Sdv) 1 mg IVPUSH Q1H PRN PRN Reason: Pain (severe 7-10) Carboprost Tromethamine (Carboprost Tromethamine 250 Mcg/1 Ml Amp) 250 mcg IM ASDIRECTED PRN PRN Reason: Post Hemorrhage Docusate Sodium (Docusate Sodium 100 Mg Cap) 100 mg PO Q12H PRN PRN Reason: Constipation Emollient Ointment (Lanolin 100% Cream 7 Gm Tube) 0 gm TOP ASDIRECTED PRN PRN Reason: Sore Nipples Oxytocin/Sodium Chloride (Oxytocin 30 Unit/500 Ml-Ns) 30 unit in 500 mls @ 2 mls/hr IV TITRATE CALVIN; Protocol Last Titration: 04/05/21 06:39 Dose: 999 munits/min, 999 mls/hr Documented by: Lactated Ringer's (Ringers, Lactated) 1,000 mls @ 150 mls/hr IV ASDIRECTED CALVIN Last Infusion: 04/05/21 07:09 Dose: 0 mls/hr Documented by: Oxytocin/Sodium Chloride (Oxytocin 30 Unit/500 Ml-Ns) 30 unit in 500 mls @ 999 mls/hr IV TITRATE CALVIN Tranexamic Acid 1,000 mg/ (Sodium Chloride) 110 mls @ 660 mls/hr IV ONETIME PRN PRN Reason: Bleeding Ibuprofen (Ibuprofen 800 Mg Tab) 800 mg PO Q8H PRN PRN Reason: Pain (mild 1-3) Last Admin: 04/06/21 08:19 Dose: 800 mg Documented by: Lidocaine HCl (Lidocaine 1% 50 Ml Mdv) 50 ml INJECT ONETIME PRN PRN Reason: Laceration repair Methylergonovine Maleate (Methylergonovine 0.2 Mg/1 Ml Amp) 0.2 mg IM ASDIRECTED PRN PRN Reason: Post Hemorrhage Misoprostol (Misoprostol 25 Mcg (1/4 Of 100 Mcg) Tab) 25 mcg VAG Q4H PRN PRN Reason: Cervical Ripening Last Admin: 04/04/21 17:06 Dose: 25 mcg Documented by: Misoprostol (Misoprostol 200 Mcg Tab) 200 mcg PO ONETIME PRN PRN Reason: Post Hemorrhage Nalbuphine HCl (Nalbuphine 10 Mg/1 Ml Vial) 10 mg IVPUSH Q1H PRN PRN Reason: Pain (severe 7-10) Oxycodone HCl (Oxycodone 5 Mg Tab) 5 mg PO Q2H PRN PRN Reason: Pain (severe 7-10) Sodium Chloride (Sodium Chloride 0.9% 10 Ml Syringe) 10 ml FLUSH ASDIRECTED PRN PRN Reason: Keep Vein Open Sodium Chloride (Sodium Chloride 0.9% 2.5 Ml Syringe) 2.5 ml FLUSH ASDIRECTED PRN PRN Reason: Keep Vein Open Sodium Chloride (Sodium Chloride 0.9% 10 Ml Sdv) 10 ml IV ASDIRECTED PRN PRN Reason: IV Use Sterile Water (Water For Irrigation,Sterile 1,000 Ml Container) 1,000 ml IRR ASDIRECTED PRN PRN Reason: delivery Terbutaline Sulfate (Terbutaline 1 Mg/Ml Sdv) 0.25 mg SUBCUT ASDIRECTED PRN PRN Reason: Tacysystole Witch Bharati (Witch Bharati Medicated Pads 40/Jar) 1 pad TOP ASDIRECTED PRN PRN Reason: comfort care Last Admin: 04/05/21 10:27 Dose: 1 box Documented by: Discontinued Medications Acetaminophen (Acetaminophen 500 Mg Tab) 1,000 mg PO NOW ONE Stop: 04/04/21 20:04 Last Admin: 04/04/21 20:25 Dose: 1,000 mg Documented by: Bupivacaine HCl (Bupivacaine 0.25% 10 Ml Sdv) Confirm Administered Dose 10 ml .ROUTE .STK-MED ONE Stop: 04/05/21 00:50 Last Admin: 04/06/21 01:24 Dose: Not Given Documented by: Ampicillin Sodium 2 gm/ Sodium (Chloride) 100 mls @ 200 mls/hr IV ONETIME ONE Stop: 04/04/21 14:29 Last Admin: 04/04/21 13:06 Dose: 200 mls/hr Documented by: Ampicillin Sodium 1 gm/ Sodium (Chloride) 50 mls @ 100 mls/hr IV Q4H CALVIN Last Admin: 04/05/21 05:11 Dose: 100 mls/hr Documented by: Ropivacaine (Naropin 0.2%) Confirm Administered Dose 200 mls @ as directed .ROUTE .STK-MED ONE Stop: 04/05/21 00:50 Last Admin: 04/06/21 01:23 Dose: Not Given Documented by: - Infant Interaction Disposition, : [place] at Bedside Infant Interaction: Holding Feeding: Attempted ; Nursed Fair/Poor, Bottle Fed Support Person: Significant Other - Recovery Exam Fundal Tone: Firm Fundal Level: At Umbilicus Fundal Placement: Midline Lochia Amount: Scant Lochia Color: Rubra/Red Perineum Description: Intact, Minimal Bruising/Swelling, Other (see below) Other Perinuem Description: left labial skid uriel, one or two stitches Episiotomy/Laceration: Approximated - Exam General: Alert, Oriented, Cooperative, No Acute Distress HEENT: Pupils Equal, Pupils Reactive Neck: Supple, Trachea Midline, No JVD Lungs: Normal Respiratory Effort GI/Abdominal Exam: Soft, Non-Tender, No Distention Extremities: Normal Inspection, Normal Range of Motion, Non-Tender, No Pedal Edema Skin: Warm, Dry, Intact Wound/Incisions: Healing Well Neurological: No New Focal Deficit Psy/Mental Status: Alert, Normal Affect, Normal Mood - Problem List Review Problem List Initiated/Reviewed/Updated: Yes - Assessment Assessment:: 25yo PPD1 s/p at 39w1d, with gestational HTN. - Plan Plan:: - Gestational hypertension; normotensive to mild range BPs, denies symptoms - Hgb stable, bleeding is light - and supplementing with formula - desires circumcision Stable to discharge home today, reviewed care instructions. Advised to check BP daily, and call with any symptoms of severe preeclampsia.
[2021-04-06] MEDS: Acetaminophen 500 MG Tab PO PRN (11:37)
== END 2021-04-06 18:45 | disposition home or self-care (01) | DRG 560 ==
LOC: MW.OB 06:39 → OBSVTOIN 04-05 06:39 → MW.OB 04-05 10:37
PROVIDERS: ADMIT Obstetrics & Gynecology; ATTEND Obstetrics & Gynecology
PROC: 10E0XZZ Delivery of Products of Conception, External Approach (ICD-10-PCS; principal; 2021-04-05)
PROC: 0HQ9XZZ Repair Perineum Skin, External Approach (ICD-10-PCS; 2021-04-05)
PROC: 3E0R3BZ Introduction of Anesthetic Agent into Spinal Canal, Percutaneous Approach (ICD-10-PCS; 2021-04-05)
PROC: 00HU33Z Insertion of Infusion Device into Spinal Canal, Percutaneous Approach (ICD-10-PCS; 2021-04-05)
DX: O13.4 Gestational [pregnancy-induced] hypertension without significant proteinuria, complicating childbirth (principal); O99.824 Streptococcus B carrier state complicating childbirth; Z3A.39 39 weeks gestation of pregnancy; Z37.0 Single live birth; O70.0 First degree perineal laceration during delivery; O77.0 Labor and delivery complicated by meconium in amniotic fluid; Z20.822 Contact with and (suspected) exposure to COVID-19; O69.81X0 Labor and delivery complicated by cord around neck, without compression, not applicable or unspecified
CPT/HCPCS: 01967; 36415; 51702; 59025; 59409; 80053; 82570; 84156; 84550; 85014; 85018; 85027; 86592; 86850; 86900; 86901; A9270-GY; J0290; J2590; J3490; J7120; U0002

== ENCOUNTER 2023-09-14 00:14 | Observation (INO) | payer BC ==
[2023-09-14] MEDS ORDERED: Sodium Chloride 0.9% 2.5 ML Syringe FLUSH PRN (00:18)
[2023-09-14] MEDS ORDERED: Sodium Chloride 0.9% 20 ML SDV IV PRN (00:18)
[2023-09-14] MEDS ORDERED: Terbutaline 1 MG/ML SDV SUBCUT PRN (00:18)
[2023-09-14] MEDS ORDERED: Methylergonovine 0.2 MG/1 ML Amp IM PRN (00:18)
[2023-09-14] MEDS ORDERED: Misoprostol 200 MCG Tab PO PRN (00:18)
[2023-09-14] MEDS ORDERED: Tranexamic Acid IN NACL,ISO-OS 1,000 MG in Premix Bag 1 BAG IV PRN ×2 (00:18)
[2023-09-14] MEDS ORDERED: Lidocaine 1% 50 ML MDV INJECT PRN (00:18)
[2023-09-14] MEDS ORDERED: Sodium Chloride 0.9% 10 ML Syringe FLUSH PRN (00:18)
[2023-09-14] MEDS ORDERED: Ondansetron 4 MG/2 ML SDV IVPUSH PRN (00:18)
[2023-09-14] MEDS ORDERED: Nalbuphine 10 MG/0.5 ML Syringe IVPUSH PRN (00:18)
[2023-09-14] MEDS ORDERED: Water For Irrigation,Sterile 1,000 ML Container IRR PRN (00:18)
[2023-09-14] MEDS ORDERED: Carboprost Tromethamine 250 MCG/1 mL Vial IM PRN (00:18)
[2023-09-14] MEDS ORDERED: Oxytocin/0.9 % Sodium Chloride 30 UNIT/500 ML BAG IV SCH ×2 (00:30)
[2023-09-14] MEDS ORDERED: Misoprostol 25 MCG (1/4 of 100 MCG) Tab VAG PRN ×2 (01:00→05:00)
[2023-09-14] MEDS: Lactated Ringers 1,000 ML IV SCH ×3 (01:07→10:08)
[2023-09-14 01:43] LABS: HEMATOCRIT 31.3 % (37.0-47.0); MEAN CORPUSCULAR HEMOGLOBIN 32.8 pg (28.0-32.0); MEAN CORPUSCULAR HGB CONC 35.1 g/dL (32.0-36.0); MEAN CORPUSCULAR VOLUME 93.4 fL (83.0-99.0); MEAN PLATELET VOLUME 12.9 fL (9.4-12.3); PLATELET COUNT,PLT 167 K/uL (150-400); RED BLOOD CELL COUNT 3.35 M/uL (4.10-5.30); WHITE BLOOD CELL COUNT,WBC 12.23 K/uL (3.9-11.3)
[2023-09-14] MEDS ORDERED: dexmedeTOMIDine HCl 200 MCG/2 ML SDV ONE (07:46)
[2023-09-14] MEDS ORDERED: Ropivacaine/PF 400 MG/200 ML PCA ONE (07:47)
[2023-09-14] MEDS ORDERED: Bupivacaine 0.25% 10 ML SDV ONE (07:47)
[2023-09-14] MEDS ORDERED: Phenylephrine HCl 0.5 MG/5 ML AMP ONE (07:47)
[2023-09-14] MEDS ORDERED: Phenylephrine HCl 0.5 MG/5 ML AMP IVPUSH PRN (08:06)
[2023-09-14] MEDS ORDERED: ePHEDrine 50 MG/ML SDV IVPUSH PRN ×2 (08:06)
[2023-09-14] MEDS ORDERED: Ropivacaine HCl/PF 400 MG in Premix Bag 1 BAG EPIDUR SCH (08:15)
[2023-09-14] MEDS ORDERED: Lanolin 100% Cream 7 GM Tube TOP PRN (11:53)
[2023-09-14] MEDS ORDERED: Docusate Sodium 100 MG Cap PO PRN (11:53)
[2023-09-14] MEDS ORDERED: Bisacodyl 10 MG Supp RECTAL PRN (11:53)
[2023-09-14] MEDS ORDERED: Simethicone 80 MG Tab.Chew PO PRN (11:53)
[2023-09-14] MEDS ORDERED: Famotidine 20 MG Tab PO PRN (11:53)
[2023-09-14] MEDS ORDERED: Aluminum Hydroxide/Magnesium Hydroxide/Simethicone XS Susp 30 ML Cup PO PRN (11:53)
[2023-09-14] MEDS ORDERED: diphenhydrAMINE 50 MG Cap PO PRN (11:53)
[2023-09-14] MEDS ORDERED: Benzocaine/Menthol 20%-0.5% Spray 78 GM Cannister TOP PRN (11:53)
[2023-09-14] MEDS ORDERED: Witch Hazel Medicated Pads 40/Jar TOP PRN (11:53)
[2023-09-14] MEDS: Ibuprofen 800 MG Tab PO PRN ×2 (16:40→23:17)
[2023-09-14] MEDS: Acetaminophen 500 MG Tab PO PRN (20:06)
[2023-09-15] MEDS: Acetaminophen 500 MG Tab PO PRN ×2 (03:01→11:08)
[2023-09-15] MEDS: Ibuprofen 800 MG Tab PO PRN (06:16)
[2023-09-15 06:30] LABS: HEMATOCRIT 30.1 % (37.0-47.0); HEMOGLOBIN 10.4 g/dL (12.0-16.0); MEAN CORPUSCULAR HEMOGLOBIN 32.4 pg (28.0-32.0); MEAN CORPUSCULAR HGB CONC 34.6 g/dL (32.0-36.0); MEAN CORPUSCULAR VOLUME 93.8 fL (83.0-99.0); MEAN PLATELET VOLUME 12.3 fL (9.4-12.3); PLATELET COUNT,PLT 152 K/uL (150-400); RED BLOOD CELL COUNT 3.21 M/uL (4.10-5.30); WHITE BLOOD CELL COUNT,WBC 12.42 K/uL (3.9-11.3)
[2023-09-15] MEDS ORDERED: Iron Polysaccharides Complex 150 MG Cap PO SCH (09:00)
== END 2023-09-15 15:58 | disposition home or self-care (01) ==
LOC: MW.OB 00:14
PROVIDERS: ADMIT Obstetrics & Gynecology; ATTEND Obstetrics & Gynecology
DX: O13.4 Gestational [pregnancy-induced] hypertension without significant proteinuria, complicating childbirth (principal); O99.52 Diseases of the respiratory system complicating childbirth; O36.63X0 Maternal care for excessive fetal growth, third trimester, not applicable or unspecified; J45.909 Unspecified asthma, uncomplicated
CPT/HCPCS: 36415; 59025; 59409; 85027; 86592; 86850; 86900; 86901; A9270; J2371; J2405; J2590; J2795; J3490; J7120